=== PATIENT | female | born 1980 | race Caucasian/White ===

== ENCOUNTER 2021-10-08 04:03 | Emergency (ER) | payer BC, OTHER ==
[2021-10-08 05:07] LABS: HEMOGLOBIN 13.8 gm/dl (12.3-15.3); RED BLOOD COUNT 4.74 M/UL (4.00-5.10); WHITE BLOOD COUNT 10.5 K/UL (4.5-11.0)
[2021-10-08 05:45] LABS: BUN/CREATININE RATIO 14 (0-10)
[2021-10-08] MEDS ORDERED: HYDROCODON-ACE1 EAC4 PO ×2 (06:33)
[2021-10-08] MEDS ORDERED: ZOFRAN ODT 4 MG4 MG PO (06:33)
[2021-10-08] MEDS ORDERED: FLOMAX 0.4 MG0.4 MG PO (06:33)
== END 2021-10-08 06:50 | disposition home or self-care (01) ==
LOC: ER1 04:03
PROVIDERS: Family Medicine
DX: N13.2 Hydronephrosis with renal and ureteral calculous obstruction (principal); F17.290 Nicotine dependence, other tobacco product, uncomplicated; Z87.442 Personal history of urinary calculi
CPT/HCPCS: 80053; 81001; 83690; 84703; 85025; 96374; 99284; J1885